=== PATIENT | male | born 1980 | race Caucasian/White ===

== ENCOUNTER 2019-01-03 08:03 | Day surgery (SDC) | payer BC ==
[~2019-01-03] VITALS: Ht 190.5 cm; Wt 172.8 kg
[2019-01-03] MEDS ORDERED: AMLO-147 PO (08:40)
[2019-01-03] MEDS ORDERED: ATOR20TA65 PO (08:41)
[2019-01-03] MEDS ORDERED: FENO150C2 PO (08:41)
[2019-01-03] MEDS ORDERED: LANT3I SC (08:42)
[2019-01-03] MEDS ORDERED: LINE600T PO (08:43)
[2019-01-03] MEDS ORDERED: LOSA1TAB25 PO (08:43)
[2019-01-03] MEDS ORDERED: NOVO3I SC (08:45)
[2019-01-03 09:05] VITALS: Ht 190.5 cm; Wt 172.8 kg
[2019-01-03 09:08] VITALS: BP 139/87; PULSE 95; RESP 16
[2019-01-03] MEDS ORDERED: POLYMYXIN/BACITRACIN 1L IRRIG ONE (10:16)
[2019-01-03] MEDS ORDERED: BUPIVACAINE 0.5% (SDV) 30 ML INJ ONE (10:22)
--- NOTE | 2019-01-03 10:28 | PREAC ---
Date/Time of Note Date/Time of Note DATE: 01/03/19 TIME: 10:24 Anesthesia Eval and Record Evaluation Time Pre-Procedure Interview DATE: 01/03/19 TIME: 10:24 Age 38 Sex male NPO: 8 hrs Preoperative diagnosis Open wound of left foot Planned procedure Partial resection of 4th and 5th metatarsal, attempt closure Past Medical History Past Medical History: Includes Cardio: HTN, Dyslipidemia Endo: Diabetes (BG 85) Renal: CKD (Stage 1, K-4.9) GI: Morbid obesity Surgery & Anesthesia Issues No known issue Meds Anticoagulation: No Beta Dewayne within 24 hr: No Reason Beta Dewayne not given: Pt. not on B-Dewayne Reported Medications Insulin Aspart* (Novolog Insulin Pen*) 100 Unit/Ml Soln, 0 SC .SLIDING SCALE ACHS, EA 01/03/19 Losartan-Hydrochlorothiazide (Losartan-HCTZ) 100-25 Mg Tab, 1 TAB PO DAILY, TAB 01/03/19 Linezolid* (Zyvox*) 600 Mg Tablet, 600 MG PO BID, TAB 01/03/19 Insulin Glargine* (Lantus*) 100 Unit/Ml Soln, 30 UNIT SC DAILY, #1 VIAL 01/03/19 Fenofibrate* (Lipofen*) 150 Mg Capsule, 160 MG PO DAILY, TAB 01/03/19 Atorvastatin Calcium (Atorvastatin Calcium) 20 Mg Tablet, 20 MG PO QHS, #30 TAB 01/03/19 Amlodipine Besylate* (Amlodipine Besylate*) 10 Mg Tablet, 10 MG PO DAILY, #30 TAB 01/03/19 Meds reviewed: Yes Allergies Coded Allergies: No Known Allergy (Unverified , 01/03/19) Allergies Reviewed: Yes Labs/Studies Labs Reviewed: Reviewed by anesthesiologist test: N/A Studies: ECG (SR), CXR (NAD) Pre-procedure Exam Last vitals Vital Signs Date Temp Pulse Resp B/P (MAP) Pulse Ox O2 O2 Flow FiO2 Time Delivery Rate 01/03/19 96.9 95 16 139/87 100 Room Air 09:08 (104) Airway: Adequate mouth opening, Adequate thyromental dist Mallampati: Mallampati I Teeth: Abnormal (small chips #7,8) Lung: Abnormal (dimished) Heart: Normal ASA Physical Status ASA physical status: 3 Emergency: None Planned Anesthetic General/MAC: MAC (Patient requests minimal sedation / local) Pre-operative Attestations Prior to commencing anesthesia and surgery, the patient was re-evaluated, there was verification of: *The patient's identity *The results of appropriate recent lab work and preoperative vital signs *The above evaluation not changing prior to induction *Anesthetic plan, risk benefits, alternative and complications discussed with patient/family; questions answered; patient/family understands, accepts and wishes to proceed. RAYRAY SHERMAN CRNA Jan 03, 2019 10:28
--- NOTE | 2019-01-03 10:30 | HPN ---
Date/Time of Note Date/Time of Note DATE: 01/03/19 TIME: 10:29 Interval H&P Admission Note Pt. seen H&P reviewed: No system changes CATRACHO FLOOD DPM Jan 03, 2019 10:30
[2019-01-03] MEDS ORDERED: CEFAZOLIN 1 GM INJ ONE (10:36)
[2019-01-03 12:17] VITALS: BP 186/91; PULSE 82; RESP 22
--- NOTE | 2019-01-03 12:17 | HPN ---
Date/Time of Note Date/Time of Note DATE: 01/03/19 TIME: 12:17 Interval H&P Admission Note Pt. seen H&P reviewed: No system changes CATRACHO FLOOD DPM Jan 03, 2019 12:17
--- NOTE | 2019-01-03 12:20 | OPR ---
Date/Time of Note Date/Time of Note DATE: 01/03/19 TIME: 12:17 Operative Report Procedure Date: Jan 03, 2019 Preoperative Diagnosis CHRONIC OPEN WOUND PLANTAR LEFT FOOT. EXOSTOSIS OF THE 4TH METATARSAL, LEFT FOOT. EXOSTOSIS OF THE 5TH METATARSAL, LEFT FOOT Postoperative Diagnosis SAME Operation/Procedure Performed PARTIAL EXCISION OF 5TH METATARSAL, LEFT FOOT. PARTIAL EXCISION OF THE 4TH METATARSAL, LEFT FOOT. PARTIAL EXCISION OF THE 3RD METATARSAL, LEFT FOOT. COMPLICATED SECONDARY CLOSURE OF PLANTAR CHRONIC OPEN WOUND, LEFT FOOT. Surgeon see signature line Dictaphone Operator ALFREDO PATTEN DPM Anesthesia Type: other Estimated Blood Loss: minimal Transfusion none Specimen NONE Grafts/Implants none Complications none Pt Condition Post Procedure: stable Procedure Description SEE DICTATED REPORT CATRACHO FLOOD DPM Jan 03, 2019 12:19
[2019-01-03 12:23] VITALS: BP 170/86; PULSE 82; RESP 21
--- NOTE | 2019-01-03 12:23 | PAC ---
Date/Time of Note Date/Time of Note DATE: 01/03/19 TIME: 12:22 Post-Anesthesia Notes Post-Anesthesia Note Last documented vital signs 186/91, 99%, 86, 14, 98.0 Vital Signs Date Temp Pulse Resp B/P (MAP) Pulse Ox O2 O2 Flow FiO2 Time Delivery Rate 01/03/19 96.9 95 16 139/87 100 Room Air 09:08 (104) Activity: WNL Respiratory function: WNL Cardiovascular function: WNL Mental status: Baseline Pain reasonably controlled: Yes Hydration appropriate: Yes Nausea/Vomiting absent: Yes RAYRAY SHERMAN CRNA Jan 03, 2019 12:23
[2019-01-03] MEDS ORDERED: OXYCODONE/ACETAMINOPHEN (5/325) TAB PO PRN ×2 (12:30)
[2019-01-03] MEDS ORDERED: LABETALOL HCL 20MG INJ IV PRN (12:30)
[2019-01-03] MEDS ORDERED: ONDANSETRON 4 MG INJ IV PRN (12:30)
[2019-01-03] MEDS ORDERED: MEPERIDINE 25 MG INJ IV PRN (12:30)
[2019-01-03] MEDS ORDERED: FENTAnyl 50 MCG/ML VIAL IV PRN ×2 (12:30)
[2019-01-03 12:45] VITALS: BP 153/79; PULSE 81; RESP 18
--- NOTE | 2019-01-15 21:13 | OPR ---
DATE OF OPERATION: 01/03/2019 PREOPERATIVE DIAGNOSES: 1. Deformity with severely plantarly prominent fourth and fifth metatarsals, left foot. 2. 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 3. Severe difficulty in ambulation and shoe gear fitting, left foot. 4. Diabetes mellitus with prior history of multiple open wounds, infections and amputations of both feet. POSTOPERATIVE DIAGNOSES: 1. Deformity with severely plantarly prominent fourth and fifth metatarsals, left foot. 2. Chronic plantar pressure wounds beneath the fourth and fifth metatarsal heads, left foot. 3. Osteophytic prominence of the remaining stump of the fifth metatarsal, left foot. 4. Severe difficulty in ambulation and shoe gear fitting, left foot. 5. Diabetes mellitus with prior history of multiple open wounds, infections and amputations of both feet. PROCEDURES: 1. Partial excision of the fourth metatarsal shaft, left foot. 2. Partial excision of the fifth metatarsal shaft, left foot. 3. Secondary closure of chronic plantar wound with advancement skin plasty, left foot. 4. Use and interpretation of intraoperative fluoroscopy. SURGEON: Osmany Jade DPM. LEAD ASSISTANT MANAGER SURGEON: Abigail Duff DPM. ANESTHESIA: Local anesthesia only. DESCRIPTION OF PROCEDURE: The patient was brought into the operative room and placed in a secure and supine position. Approximately 15 mL of 0.5% Marcaine plain was administered into the left foot in a regional nerve block. A pneumatic tourniquet was then placed on the left ankle. The left foot was then prepped and draped in the usual sterile manner. An Esmarch bandage was used to exsanguinate th e foot and the pneumatic ankle tourniquet was inflated to 250 mmHg. Attention was then directed to t he dorsal aspect of the left foot. Procedure #1: Intraoperative fluoroscopy was used to localize the sites of the osseous prominences o n the left foot. A #10 blade was utilized to create a linear longitudinal incision directly over the fourth intermetatarsal space. Incision was carried deeper to the level of the subcutaneous fascia. All vital structures were identified and retracted medially and laterally including the extensor ten don. The incision was carried deeper to the level of the fifth metatarsal which was located and foun d to be severely plantarflexed and fixed into the soft tissue of the plantar foot. The periosteum of the bone was incised and the periosteal elevator was used to dissect off all soft tissue attachments extending to the level of the first metatarsal. The power sagittal saw was then utilized to transve rsely resect the fifth metatarsal and the bone cut was angled from dorsal distal to plantar proximal and this was carried through and through the shaft of the fifth metatarsal and was excised from the s urgical site. The remainder of the fifth metatarsal stump was remodeled with the power Cross cut vasu p to reduce any sharp bony prominences. Procedure #2: Attention was then directed to the dorsal aspect of the fourth metatarsal where a sim ilar dissection was performed and the shaft of the fourth metatarsal was exposed which was similarly freed of all soft tissue and ligamentous attachments. A periosteal elevator was used to free the bon e from additional attachments. This bone had to be resected in order to close the plantar wound. A power sagittal saw was then used to transversely resect the shaft of the fourth metatarsal and the an gle of the cut was similar from dorsal distal to plantar proximal. The fourth metatarsal shaft was p artially removed from the surgical site in toto and the power Cross cut rasp was used to further chandler del the remaining stump to remove any sharp prominences. Intraoperative fluoroscopy was used to asse ss the resection site and the parabola. Following this, the surgical sites were copiously flushed wi th sterile saline antibiotic solution. 3-0 Vicryl was utilized to repair the deep structures. The s ubcutaneous tissue and fascia was then repaired with 4-0 Vicryl. The skin edges were repaired with 3 -0 nylon in a simple interrupted stitch and these were reinforced with skin josué. Procedure #3: At this time, attention was directed to the plantar aspect of the left foot beneath th e fourth and fifth metatarsal shaft sites where there was a large chronic plantar wound. The wound s ite was sharply debrided of all nonviable tissue and deteriorated edges through the level of subcutan eous tissue and fascia. All devitalized tissue was excised. The skin was then undermined in order t o allow for easier mobilization. The wound was circumscribed and all nonviable skin was excised. At this time, an advancement skin plasty was performed. A pedicle type flap was created in the skin an d this incision was created full thickness and then this was rotated into a proper position and advan [place]. The skin edges were then sutured. The remainder of the incision was able to be reapproximated under minimal tension. Once completed, the entire site was sutured with 3-0 nylon in a simple interr upted stitch to create a complete closure, as well as josué. Following this, tincture of benzoin w as applied to the skin edges followed by a quarter-inch Steri-Strips. An additional 5 mL of 0.5% Mar luna plain was injected around the surgical sites for additional anesthesia. At this time, a dry st erile dressing consisting of Xeroform, 4 x 4's, Missy and Coban was applied in a semi-compressive fas hion. The pneumatic ankle tourniquet was deflated and capillary filling time was instantaneous. All digits were warm and viable. Procedure #4: Use and interpretation of intraoperative fluoroscopy was used throughout the procedure s on the left foot to assess the adequacy of bone resection sites. Utilization and interpretation of the device was necessary to obtain the best possible result for the patient and exposure of the surg richmond assistants to additional radiation. The patient apparently tolerated the procedure well and left the operating room to recovery room with vital signs stable and neurovascular status apparently inta ct to the left foot. There were no significant complications encountered during this procedure. The patient has postoperative medications and instructions and will follow up in the office in three to four days for a dressing change and radiographs. The patient was instructed to maintain the dressing clean, dry and intact. The patient will keep the left foot elevated and ambulate using a Cam walker boot at all times with partial weightbearing on the left heel. The patient has all appropriate pain and anti-inflammatory medications. The patient was advised to minimize overall ambulation in the in ter and he will contact me immediately when any problems arise. Dictated By: OSMANY MAYORGA Conf#: [id number] DID#: [id number]
== END 2019-01-03 13:30 | disposition home or self-care (01) ==
LOC: SDS 08:03
PROVIDERS: ATTEND Podiatrist Foot & Ankle Surgery
DX: M20.5X2 Other deformities of toe(s) (acquired), left foot (principal); D16.32 Benign neoplasm of short bones of left lower limb; E11.9 Type 2 diabetes mellitus without complications; E78.5 Hyperlipidemia, unspecified; E66.01 Morbid (severe) obesity due to excess calories; Z68.42 Body mass index [BMI] 45.0-49.9, adult; I12.9 Hypertensive chronic kidney disease with stage 1 through stage 4 chronic kidney disease, or unspecified chronic kidney disease; N18.1 Chronic kidney disease, stage 1
CPT/HCPCS: 14040; 28122; 82962; J0690